=== PATIENT | female | born 1950 | race Caucasian/White ===

== ENCOUNTER → 2024-11-30 11:28 | Outpatient (REF) | payer MEDICARE, OTHER, SELFPAY | LOC: HWRAD 11:28 | PROVIDERS: ATTENDING PHYSICIAN Psychiatry & Neurology Neurology | DX: G24.9 Dystonia, unspecified (principal) | CPT/HCPCS: 73110 ==

== ENCOUNTER 2024-12-13 10:04 | Outpatient (RCR) | payer MEDICARE, OTHER, SELFPAY | END 2024-12-13 23:59 | disposition home or self-care (01) | LOC: ROT 10:04 | PROVIDERS: ATTENDING PHYSICIAN Psychiatry & Neurology Neurology | DX: G24.9 Dystonia, unspecified (principal); Z73.6 Limitation of activities due to disability; M79.641 Pain in right hand | CPT/HCPCS: 97014; 97018; 97035; 97110; 97140; 97166; 97535 ==

== ENCOUNTER → 2024-12-28 06:47 | Outpatient (REF) | payer MEDICARE, OTHER, SELFPAY | LOC: MRI 06:47 | PROVIDERS: ATTENDING PHYSICIAN Psychiatry & Neurology Neurology | DX: G24.9 Dystonia, unspecified (principal) | CPT/HCPCS: 72141; 97018; 97110; 97140 ==

== ENCOUNTER 2025-01-15 17:10 | Outpatient (RCR) | payer MEDICARE, OTHER, SELFPAY | END 2025-01-15 23:59 | disposition home or self-care (01) | LOC: RPT 17:10 | PROVIDERS: ATTENDING PHYSICIAN Psychiatry & Neurology Neurology | DX: G24.9 Dystonia, unspecified (principal); Z73.6 Limitation of activities due to disability; M79.641 Pain in right hand | CPT/HCPCS: 76882; 97014; 97018; 97110; 97140 ==

== ENCOUNTER 2025-02-14 12:06 | Outpatient (RCR) | payer MEDICARE, OTHER, SELFPAY | END 2025-02-14 23:59 | disposition home or self-care (01) | LOC: RPT 12:06 | PROVIDERS: ATTENDING PHYSICIAN Psychiatry & Neurology Neurology | DX: G24.9 Dystonia, unspecified (principal); Z73.6 Limitation of activities due to disability; M79.641 Pain in right hand | CPT/HCPCS: 97014; 97018; 97110; 97140; 97535 ==